=== PATIENT | male | born 1975 | race Caucasian/White ===

== ENCOUNTER 2019-08-03 16:28 | Observation (INO) | payer OTHER ==
--- NOTE | 2019-08-03 17:22 | PDOC ---
History of Present Illness - General Chief Complaint: Chest Pain Stated Complaint: CHEST PAIN Time Seen by Provider: 08/03/19 17:21 History Source: Patient Exam Limitations: No Limitations - History of Present Illness Initial Comments: Pt is a 44 yo M, with PMH of pre-DM (on metformin), who is presenting with intermittent chest pain, which has worsened since last night. Pt states the pain started last night at 10 pm when he was at rest. The pain lasts about 10 minutes, and continued to occur last night and throughout the day, even waking him from sleep. The pain is substernal and "pinching," does not radiate, and is not associated with n/v, diaphoresis. Pt denies any recent fevers/chills, headache, vision changes, syncope, palpitations, SOB, nausea/vomiting, abdominal pain, urinary symptoms, diarrhea/constipation, or leg swelling. Pt states had outpatient echo and stress test last month which "was normal". Allergies: NKDA PCP: Dr. Norton Cards: Dr. Liao Social: Pt denies any cigarette, alcohol, or drug use. Pt denies any recent travel or sick contacts. Surgical: no relevant history. Family: Mother - CVA in 50s 08/03/19 19:07 Past History - Travel Traveled outside of the country in the last 30 days: No Close contact w/someone who was outside of country & ill: No - Past Medical History Allergies/Adverse Reactions: Allergies Allergy/AdvReac Type Severity Reaction Status Date / Time ketorolac tromethamine Allergy Verified 08/03/19 16:32 [From Toradol] Home Medications: Ambulatory Orders Metformin HCl [Glucophage] 500 mg PO DAILY 08/03/19 Asthma: Yes COPD: No Diabetes: Yes Hypercholesterolemia: Yes - Psycho Social/Smoking Cessation Hx Smoking History: Never smoked Hx Alcohol Use: No Drug/Substance Use Hx: No Substance Use Type: Alcohol Cardiac Specific PMH - Complaint Specific PMHX Abdominal Aortic Aneurysm: No Angina: Yes Cardiac Arrhythmia: No Cardiac Stent: No GERD: No Myocardial Infarction: No Pacemaker: No Pulmonary Embolus: No Valvular Heart Disease: No Peripheral Vascular Disease: No Review of Systems - Review of Systems Able to Perform ROS?: Yes Is the patient limited Yakut proficient: No Constitutional: Yes: Weight Stable. No: Chills, Diaphoresis, Fever, Loss of Appetite, Malaise, Weakness HEENTM: No: Recent change in vision, Nose Congestion, Throat Pain, Throat Swelling, Difficulty Swallowing Respiratory: No: Cough, Orthopnea, Shortness of Breath Cardiac (ROS): Yes: Chest Pain. No: Edema, Irregular Heart Rate, Lightheadedness, Palpitations, Syncope, Chest Tightness ABD/GI: No: Constipated, Diarrhea, Nausea, Poor Appetite, Poor Fluid Intake, Vomiting : No: Burning, Dysuria, Frequency, Flank Pain, Pain, Urgency Musculoskeletal: No: Back Pain, Joint Pain, Muscle Pain, Muscle Weakness Integumentary: No: Rash Neurological: No: Headache, Numbness, Weakness, Unsteady Gait, Ataxia, Dizziness Psychiatric: No: Sleep Pattern Change, Change in Appetite Endocrine: No: Increased Urine, Change in Weight Hematologic/Lymphatic: No: Anemia, Blood Clots, Easy Bleeding, Easy Bruising All Other Systems: Reviewed and Negative *Physical Exam - Vital Signs Last Vital Signs Temp Pulse Resp BP Pulse Ox 98 F 82 18 145/76 98 08/03/19 16:30 08/03/19 16:30 08/03/19 16:30 08/03/19 16:30 08/03/19 16:30 - Physical Exam Comments: Vitals stable, pt afebrile. Pt in NAD, ambulatory in ED. Muscular body habitus. Pt alert and oriented x3. teacher public health generally intact, muscular strength and sensation intact. No midline spinal tenderness, step-offs, or crepitus. Head normocephalic, atraumatic. Eyes PERRLA, EOMI. Oropharynx without erythema or exudates, no LAD b/l. No nasal congestion. Hearing intact. Clear heart sounds, S1/S2, no JVD, b/l pedal edema, or heart murmur. Reproducible chest wall tenderness over mid-sternum. Clear lung sounds, no respiratory distress, wheezes, crackles, or accessory muscle use. No abdominal or CVA tenderness to palpation, no rebound, no guarding. Abdomen soft, non-distended, and with normoactive bowel sounds. Skin without jaundice or rash. 08/03/19 19:13 ED Treatment Course - LABORATORY CBC & Chemistry Diagram: 08/03/19 17:30 08/03/19 17:30 - ADDITIONAL ORDERS Additional order review: Laboratory Results 08/03/19 08/03/19 17:30 17:30 Sodium 138 Potassium 4.3 Chloride 104 Carbon Dioxide 30 Anion Gap 4 L BUN 18.6 H Creatinine 1.2 Est GFR (CKD-EPI)AfAm 83.54 Est GFR (CKD-EPI)NonAf 72.08 Random Glucose 162 H Calcium 8.6 Total Bilirubin 0.3 AST 23 ALT 40 Alkaline Phosphatase 118 H Creatine Kinase 212 Creatine Kinase Index No Result Required. CK-MB (CK-2) < 1.0 Troponin I 0.14 H Total Protein 7.7 Albumin 4.3 08/03/19 17:30 RBC 4.94 MCV 86.4 MCHC 33.4 RDW 14.4 MPV 7.4 L Neutrophils % 64.0 Lymphocytes % 26.9 Monocytes % 6.3 Eosinophils % 2.1 Basophils % 0.7 - Medications Given in the ED: ED Medications Discontinued Medications Generic Name Dose Route Start Last Admin Trade Name Freq PRN Reason Stop Dose Admin Acetaminophen 650 mg 08/03/19 18:04 08/03/19 18:30 Tylenol - PO 08/03/19 18:05 650 mg ONCE ONE Administration Aspirin 325 mg 08/03/19 18:30 08/03/19 18:45 Asa - PO 08/03/19 18:31 325 mg ONCE ONE Administration Medical Decision Making - Medical Decision Making Pt was seen at bedside, also will be seen by attending Dr. Nieves. Pt presenting with chest pain which is more severe and lasting longer than usual. Will evaluate for pericarditis vs ACS Provided 650 mg PO tylenol and 325 mg PO aspirin for improvement of pain and cardiac protection. Will continue to reassess pt and monitor for symptomatic improvement. ECG: NSR, intervals WNL (HR 76, MN 150, QRS 98, QTc 441). TWIs in III, no reciprocal change. No prior ECG for comparison. CBC and CMP generally WNL Trop 0.[address] Norton, who would like cardiology consultation before admission due to elevated troponin. Paged Dr. Liao/Mckenna Signed out to night team. 08/03/19 19:16 Discharge - Discharge Information Problems reviewed: Yes Clinical Impression/Diagnosis: Elevated troponin Chest pain Qualifiers: Chest pain type: unspecified Qualified Code(s): R07.9 - Chest pain, unspecified Condition: Stable - Admission Yes - Follow up/Referral - Patient Discharge Instructions - Post Discharge Activity
[2019-08-03 17:45] LABS: BASO % 0.7 % (0-2.0); EOS % 2.1 % (0-4.5); HEMATOCRIT 42.7 % (35.4-49); HEMOGLOBIN 14.3 GM/dL (11.7-16.9); LYMPH % 26.9 % (8-40); MCH 28.9 pg (25.7-33.7); MCHC 33.4 g/dl (32.0-35.9); MEAN CELL VOLUME 86.4 fl (80-96); MEAN PLT VOLUME 7.4 fl (7.5-11.1); MONO % 6.3 % (3.8-10.2); PLATELET COUNT 255 K/MM3 (134-434); RBC 4.94 M/mm3 (4.00-5.60); RDW 14.4 % (11.9-15.9)
[2019-08-03] MEDS ORDERED: ACETAMINOPHEN 325 MG TABLET (FP) PO ONE (18:04)
[2019-08-03 18:18] LABS: ALBUMIN 4.3 g/dl (3.4-5.0); BILIRUBIN,TOTAL 0.3 mg/dL (0.2-1); BLOOD UREA NITROGEN 18.6 mg/dL (7-18); CALCIUM 8.6 mg/dL (8.5-10.1); CREATININE 1.2 mg/dL (0.55-1.3); POTASSIUM 4.3 mmol/L (3.5-5.1); TOT PROT 7.7 g/dl (6.4-8.2)
[2019-08-03] MEDS ORDERED: ACETAMINOPHEN 325 MG TABLET (FP) ONE (18:26)
[2019-08-03] MEDS ORDERED: ASPIRIN 325 MG TABLET PO ONE (18:30)
[2019-08-03] MEDS ORDERED: ASPIRIN 325 MG ENTERIC COATED TABLET (FP) ONE (18:40)
--- NOTE | 2019-08-03 18:52 | PDOC ---
Attending Attestation - Resident Resident Name: Claudia Barbour - ED Attending Attestation I have performed the following: I have examined & evaluated the patient, The case was reviewed & discussed with the resident, I agree w/resident's findings & plan - HPI HPI: 08/03/19 18:46 44-year-old male h/o pre-DM, on metformin, presenting with intermittent left sided chest pain, worse last night. Pt states the pain started last night at 10 pm when he was at rest. The pain lasts about 10 minutes, and continued to occur last night and throughout the day, even waking him from sleep. The pain is substernal and "pinching," does not radiate, and is not associated with n/v, diaphoresis. primary doctor is Dr Blackwell has had cards workup, OP echo and stress with Dr Liao. neg stress testing/workup. no sob, dizziness/calzada, syncope, focal weakness/paresthesias. 08/04/19 10:01 - Physicial Exam PE: 08/03/19 18:50 Agree with the resident's HPI and PE as documented in the electronic medical record. NAD, well appearing, EOMI, PERRL, nl conjunctiva, anicteric; neck supple. lungs clear, RRR, abdomen soft nontender. no rebound, guarding. Back nontender. ROBERTS x4, no focal neuro deficits. No peripheral edema. normal color for ethnicity , WWP. - Medical Decision Making 08/03/19 18:50 Vital Signs Temp Pulse Resp BP Pulse Ox 98 F 82 18 145/76 98 08/03/19 16:30 08/03/19 16:30 08/03/19 16:30 08/03/19 16:30 08/03/19 16:30 DDx chest pain: ACS, coronary vasospasm, NSTEMI, arrhythmia, unstable angina, PE , dissection, PUD, esophageal spasm, GERD, gastritis, costochondritis, pneumonia , pleurisy, pericarditis/myocarditis. dehydration, electrolyte/metabolic derangements. Considered but clinically doubt based on HPI and PE: Low suspicion for pulmonary embolism or dissection. EKG normal sinus rhythm, no interval abnormalities, narrow QRS, ST and T wave segments and morphology normal. Nonspecific T wave abnormalities, unchanged from prior ASA given, treating as NSTEMI, +trop 0.14. trend trops/EKG cards Cs with Dr Liao, admitting to Dr Blackwell Plan for admit observation, possible Stress testing, to r/o ischemia/JUANITO, serial trops and EKG/tele monitoring. ASA administered, pain controlled, discussion with patient and family at bedside, made aware of impression and plan , questions answered. 08/03/19 18:52 08/04/19 10:03
--- NOTE | 2019-08-03 19:10 | PDOC ---
*Physical Exam - Vital Signs Last Vital Signs Temp Pulse Resp BP Pulse Ox 98 F 82 18 145/76 98 08/03/19 16:30 08/03/19 16:30 08/03/19 16:30 08/03/19 16:30 08/03/19 16:30 <Gil Calvillo - Last Filed: 08/03/19 23:10> - Vital Signs Last Vital Signs Temp Pulse Resp BP Pulse Ox 98.1 F 75 20 129/63 99 08/04/19 06:14 08/04/19 06:14 08/04/19 06:14 08/04/19 06:14 08/04/19 00:33 <Michelle Nieves - Last Filed: 08/04/19 10:58> ED Treatment Course - LABORATORY CBC & Chemistry Diagram: 08/03/19 17:30 08/03/19 17:30 - ADDITIONAL ORDERS Additional order review: Laboratory Results 08/03/19 08/03/19 17:30 17:30 Sodium 138 Potassium 4.3 Chloride 104 Carbon Dioxide 30 Anion Gap 4 L BUN 18.6 H Creatinine 1.2 Est GFR (CKD-EPI)AfAm 83.54 Est GFR (CKD-EPI)NonAf 72.08 Random Glucose 162 H Calcium 8.6 Total Bilirubin 0.3 AST 23 ALT 40 Alkaline Phosphatase 118 H Creatine Kinase 212 Creatine Kinase Index No Result Required. CK-MB (CK-2) < 1.0 Troponin I 0.14 H Total Protein 7.7 Albumin 4.3 08/03/19 17:30 RBC 4.94 MCV 86.4 MCHC 33.4 RDW 14.4 MPV 7.4 L Neutrophils % 64.0 Lymphocytes % 26.9 Monocytes % 6.3 Eosinophils % 2.1 Basophils % 0.7 - Medications Given in the ED: ED Medications Discontinued Medications Generic Name Dose Route Start Last Admin Trade Name Freq PRN Reason Stop Dose Admin Acetaminophen 650 mg 08/03/19 18:04 08/03/19 18:30 Tylenol - PO 08/03/19 18:05 650 mg ONCE ONE Administration Aspirin 325 mg 08/03/19 18:30 08/03/19 18:45 Asa - PO 08/03/19 18:31 325 mg ONCE ONE Administration <Gil Calvillo - Last Filed: 08/03/19 23:10> - LABORATORY CBC & Chemistry Diagram: 08/04/19 05:20 08/04/19 05:20 - ADDITIONAL ORDERS Additional order review: 08/03/19 17:30 RBC 4.94 MCV 86.4 MCHC 33.4 RDW 14.4 MPV 7.4 L Neutrophils % 64.0 Lymphocytes % 26.9 Monocytes % 6.3 Eosinophils % 2.1 Basophils % 0.7 - RADIOLOGY Radiology Studies Ordered: Category Date Time Status CHEST PA & LAT [RAD] Stat Radiology 08/03/19 17:14 Taken - Medications Given in the ED: ED Medications Discontinued Medications Generic Name Dose Route Start Last Admin Trade Name Sdq PRN Reason Stop Dose Admin Acetaminophen 650 mg 08/03/19 18:04 08/03/19 18:30 Tylenol - PO 08/03/19 18:05 650 mg ONCE ONE Administration Aspirin 325 mg 08/03/19 18:30 08/03/19 18:45 Asa - PO 08/03/19 18:31 325 mg ONCE ONE Administration <Michelle Nieves - Last Filed: 08/04/19 10:58> Medical Decision Making - Medical Decision Making MDM: HEART Score for Major Cardiac Events RESULT SUMMARY: 4 points Moderate Score (4-6 points) Risk of MACE of 12-16.6%. If troponin is positive, many experts recommend further workup and admission even with a low HEART Score. INPUTS: History > 1 = Moderately suspicious EKG > 0 = Normal Age > 1 = 45-64 Risk factors > 1 = 1-2 risk factors Initial troponin > 1 = 13 normal limit Received sign out from resident Dr. Barbour. In short, pt is a 44 y/o male presenting with intermittent substernal chest pain for the past two days. Pain is present at rest and reproducible. Recent cardiac workup outpatient. Nonspecific T-wave inversion on EKG. Initial troponin mildly elevated. Pt given Tylenol and ASA. Pt was discussed with Dr. Norton who requested cardiology consultation prior to admission decision. Awaiting call back from Dr. Andres. 03 Aug 2019 20:41 PM Second page sent for Dr. Andres through office answering service. Awaiting call back. 03 Aug 2019 21:27 PM Third page sent for Dr. Andres through office answering service. Awaiting call back. 03 Aug 2019 22:31 PM Telephone discussion with Dr. Norton. Verbally appraised of the pts HPI, ED course, and current plan of management. Will admit the pt to telemetry on observational status. Will attempt to page cardiology herself. No additional orders requested. <Gil Calvillo - Last Filed: 08/03/19 23:10> Discharge - Discharge Information Problems reviewed: Yes - Admission Yes <Gil Calvillo - Last Filed: 08/03/19 23:10> <Michelle Nieves - Last Filed: 08/04/19 10:58> - Discharge Information Clinical Impression/Diagnosis: Elevated troponin, NSTEMI (non-ST elevated myocardial infarction) Chest pain Qualifiers: Chest pain type: unspecified Qualified Code(s): R07.9 - Chest pain, unspecified Condition: Stable
--- NOTE | 2019-08-03 22:33 | CON.CARD ---
Consult Consult Specialty:: Cardiology Reason for Consultation:: chest pain - History of Present Illness History of Present Illness: Pt is a 44 yo M, with PMH of pre-DM (on metformin), who is presenting with intermittent chest pain, which has worsened since last night. Pt states the pain started last night at 10 pm when he was at rest. The pain lasts about 10 minutes, and continued to occur last night and throughout the day, even waking him from sleep. The pain is substernal and "pinching," does not radiate, and is not associated with n/v, diaphoresis. Pt denies any recent fevers/chills, headache, vision changes, syncope, palpitations, SOB, nausea/vomiting, abdominal pain, urinary symptoms, diarrhea/constipation, or leg swelling. Pt states had outpatient echo and stress test last month which "was normal". Allergies: NKDA PCP: Dr. Norton Cards: Dr. Liao PMH Diabetes mellitus Morbid obesity Hyperlipidemia Chest pain sx Exercise MIBI stress test was negative in November 2018, - History Source History Provided By: Patient, Medical Record - Past Medical History Cardio/Vascular: Yes: Hyperlipdemia Endocrine: Yes: Diabetes Mellitus - Alcohol/Substance Use Hx Alcohol Use: No - Smoking History Smoking history: Never smoked Home Medications - Allergies Allergies/Adverse Reactions: Allergies Allergy/AdvReac Type Severity Reaction Status Date / Time ketorolac tromethamine Allergy Verified 08/03/19 16:32 [From Toradol] - Home Medications Home Medications: Ambulatory Orders Metformin HCl [Glucophage] 500 mg PO DAILY 08/03/19 Review of Systems - Review of Systems Constitutional: reports: No Symptoms Eyes: reports: No Symptoms HENT: reports: No Symptoms Neck: reports: No Symptoms Cardiovascular: reports: Chest Pain (atypical in nature - sharp not related to exercise) Gastrointestinal: reports: No Symptoms Genitourinary: reports: No Symptoms Breasts: reports: No Symptoms Reported Musculoskeletal: reports: No Symptoms Integumentary: reports: No Symptoms Neurological: reports: No Symptoms Endocrine: reports: No Symptoms Hematology/Lymphatic: reports: No Symptoms Psychiatric: reports: No Symptoms Vital Signs: Vital Signs Temperature 98 F 08/03/19 16:30 Pulse Rate 79 08/03/19 19:13 Respiratory Rate 18 08/03/19 19:13 Blood Pressure 126/78 08/03/19 19:13 O2 Sat by Pulse Oximetry (%) 98 08/03/19 19:13 Constitutional: Yes: Well Nourished, No Distress, Calm Eyes: Yes: WNL, Conjunctiva Clear, EOM Intact HENT: Yes: WNL, Atraumatic, Normocephalic Neck: Yes: WNL, Supple, Trachea Midline Respiratory: Yes: WNL, Regular, CTA Bilaterally Gastrointestinal: Yes: WNL, Normal Bowel Sounds Renal/: Yes: WNL Cardiovascular: Yes: WNL, Regular Rate and Rhythm Musculoskeletal: Yes: WNL Extremities: Yes: WNL Integumentary: Yes: WNL Neurological: Yes: WNL, Alert, Oriented ...Motor Strength: WNL Psychiatric: Yes: WNL, Alert, Oriented - Other Data Labs, Other Data: CBC, BMP 08/03/19 17:30 08/03/19 17:30 Troponin, BNP 08/03/19 08/03/19 17:30 20:35 Troponin I 0.14 H 0.15 H Troponin, BNP 08/03/19 08/03/19 17:30 20:35 Troponin I 0.14 H 0.15 H Imaging - Results Chest X-ray: Image Reviewed (wnl) EKG: Image Reviewed (sr wnl) Problem List - Problems (1) Chest pain Code(s): R07.9 - CHEST PAIN, UNSPECIFIED Qualifiers: Chest pain type: unspecified Qualified Code(s): R07.9 - Chest pain, unspecified (2) Elevated troponin Code(s): R79.89 - OTHER SPECIFIED ABNORMAL FINDINGS OF BLOOD CHEMISTRY (3) Corneal abrasion Code(s): S05.00XA - INJ CONJUNCTIVA AND CORNEAL ABRASION W/O FB, UNSP EYE, INIT (4) Injury, hand Code(s): S69.90XA - UNSP INJURY OF UNSP WRIST, HAND AND FINGER(S), INIT ENCNTR (5) Uveitis Code(s): H20.9 - UNSPECIFIED IRIDOCYCLITIS Assessment/Plan Atypical CP Positive TNIs (low level) Normal EKG Diabetes mellitus Morbid obesity Hyperlipidemia Chest pain sx Exercise MIBI stress test was negative in November 2018, Plan r/o [place] ASA BB ECHO stress test DVT PLX keep LDL below 70 mg/dl
[2019-08-03] MEDS ORDERED: ACETAMINOPHEN 325 MG TABLET (FP) PO PRN (23:00)
[2019-08-03 23:55] VITALS: BMI 35.6
[2019-08-04] MEDS: PANTOPRAZOLE 40 MG TABLET (FP) PO SCH ×3 (00:18→21:47)
[2019-08-04] MEDS: methylPREDNISolone NA SUCC 40 MG/1 ML VIAL IVPUSH SCH ×3 (00:19→09:43)
[2019-08-04] MEDS: metFORMIN HCL 500 MG TABLET (FP) PO SCH (06:13)
[2019-08-04 07:09] LABS: BASO % 0.2 % (0-2.0); EOS % 0.1 % (0-4.5); HEMATOCRIT 42.2 % (35.4-49); HEMOGLOBIN 13.8 GM/dL (11.7-16.9); LYMPH % 11.3 % (8-40); MCHC 32.7 g/dl (32.0-35.9); MEAN CELL VOLUME 85.8 fl (80-96); MONO % 1.4 % (3.8-10.2); PLATELET COUNT 232 K/MM3 (134-434); RBC 4.92 M/mm3 (4.00-5.60); RDW 14.1 % (11.9-15.9); WHITE BLOOD COUNT 6.9 K/mm3 (4.0-10.0)
[2019-08-04 07:39] LABS: ALBUMIN 4.3 g/dl (3.4-5.0); ALK PHOS 118 U/L (45-117); ANION GAP 6 MMOL/L (8-16); BILIRUBIN,TOTAL 0.4 mg/dL (0.2-1); BLOOD UREA NITROGEN 18.2 mg/dL (7-18); CALCIUM 8.9 mg/dL (8.5-10.1); CHLORIDE 103 mmol/L (98-107); CHOLESTEROL 194 mg/dL (50-200); CO2 26 mmol/L (21-32); CREATININE 1.1 mg/dL (0.55-1.3); GLUCOSE,RANDOM 178 mg/dL (74-106); HDL CHOLESTEROL 58 mg/dL (40-60); LDL CHOLESTEROL (ONLY SJRH) 130 mg/dL (5-100); MAGNESIUM 2.3 mg/dL (1.8-2.4); POTASSIUM 4.7 mmol/L (3.5-5.1); SGOT/AST 18 U/L (15-37); SGPT/ALT 36 U/L (13-61); SODIUM 135 mmol/L (136-145); TOT PROT 7.7 g/dl (6.4-8.2); TRIGLYCERIDES 75 mg/dL (0-150)
--- NOTE | 2019-08-04 09:29 | PN ---
Progress Note, Physician History of Present Illness: Pt is a 44 yo M, with PMH of pre-DM (on metformin), who is presenting with intermittent chest pain, which has worsened since last night. Pt states the pain started last night at 10 pm when he was at rest. The pain lasts about 10 minutes, and continued to occur last night and throughout the day, even waking him from sleep. The pain is substernal and "pinching," does not radiate, and is not associated with n/v, diaphoresis. Pt denies any recent fevers/chills, headache, vision changes, syncope, palpitations, SOB, nausea/vomiting, abdominal pain, urinary symptoms, diarrhea/constipation, or leg swelling. Pt states had outpatient echo and stress test last month which "was normal". Allergies: NKDA PCP: Dr. Norton Cards: Dr. Liao PMH Diabetes mellitus Morbid obesity Hyperlipidemia Chest pain sx Exercise MIBI stress test was negative in November 2018, - Current Medication List Current Medications: Active Medications Acetaminophen (Tylenol -) 650 mg PO Q6H PRN PRN Reason: PAIN LEVEL 1-5 Last Admin: 08/04/19 03:57 Dose: 650 mg Aspirin (Ecotrin -) 81 mg PO DAILY [facility] Atorvastatin Calcium (Lipitor -) 40 mg PO HS [facility] Metformin HCl (Glucophage -) 500 mg PO ACBK [facility] Last Admin: 08/04/19 06:13 Dose: 500 mg Methylprednisolone Sodium Succinate (Solu-Medrol -) 40 mg IVPUSH Q8H-IV [facility] Last Admin: 08/04/19 02:08 Dose: Not Given Pantoprazole Sodium (Protonix -) 40 mg PO BID [facility] Last Admin: 08/04/19 00:18 Dose: 40 mg - Objective Vital Signs: Vital Signs Temperature 98.1 F 08/04/19 06:14 Pulse Rate 75 08/04/19 06:14 Respiratory Rate 20 08/04/19 06:14 Blood Pressure 129/63 08/04/19 06:14 O2 Sat by Pulse Oximetry (%) 99 08/04/19 00:33 Eyes: Yes: WNL, Conjunctiva Clear, EOM Intact HENT: Yes: WNL, Atraumatic, Normocephalic Neck: Yes: WNL, Supple, Trachea Midline Cardiovascular: Yes: WNL, Regular Rate and Rhythm Respiratory: Yes: WNL, Regular, CTA Bilaterally Gastrointestinal: Yes: WNL, Normal Bowel Sounds Genitourinary: Yes: WNL Musculoskeletal: Yes: WNL Extremities: Yes: WNL Edema: No Integumentary: Yes: WNL Neurological: Yes: WNL, Alert, Oriented ...Motor Strength: WNL Psychiatric: Yes: WNL Labs: CBC, BMP 08/04/19 05:20 08/04/19 05:20 Problem List - Problems (1) Chest pain Code(s): R07.9 - CHEST PAIN, UNSPECIFIED Qualifiers: Chest pain type: unspecified Qualified Code(s): R07.9 - Chest pain, unspecified (2) Elevated troponin Code(s): R79.89 - OTHER SPECIFIED ABNORMAL FINDINGS OF BLOOD CHEMISTRY (3) Corneal abrasion Code(s): S05.00XA - INJ CONJUNCTIVA AND CORNEAL ABRASION W/O FB, UNSP EYE, INIT (4) Injury, hand Code(s): S69.90XA - UNSP INJURY OF UNSP WRIST, HAND AND FINGER(S), INIT ENCNTR (5) Uveitis Code(s): H20.9 - UNSPECIFIED IRIDOCYCLITIS Assessment/Plan Atypical CP Positive TNIs (low level) Normal EKG Diabetes mellitus Morbid obesity Hyperlipidemia Chest pain sx Exercise MIBI stress test was negative in November 2018, Plan r/o [place] ASA BB ECHO stress test DVT PLX keep LDL below 70 mg/dl Agree with Atorvastatin
[2019-08-04] MEDS: ASPIRIN COATED 81 MG TABLET.EC PO SCH (09:41)
--- NOTE | 2019-08-04 11:29 | EKG ---
Test Reason : Blood Pressure : / mmHG Vent. Rate : 076 BPM Atrial Rate : 076 BPM P-R Int : 150 ms QRS Dur : 098 ms QT Int : 392 ms P-R-T Axes : 045 004 026 degrees QTc Int : 441 ms NORMAL SINUS RHYTHM NORMAL ECG WHEN COMPARED WITH ECG OF 27-FEB-2010 22:33, NO SIGNIFICANT CHANGE WAS FOUND Confirmed by CALEB MORE MD ([id number]) on 08/04/2019 11:29:08 AM Referred By: Confirmed By:CALEB MORE MD
--- NOTE | 2019-08-04 11:29 | EKG ---
Test Reason : Blood Pressure : / mmHG Vent. Rate : 082 BPM Atrial Rate : 082 BPM P-R Int : 158 ms QRS Dur : 098 ms QT Int : 374 ms P-R-T Axes : 039 -17 007 degrees QTc Int : 436 ms NORMAL SINUS RHYTHM NORMAL ECG WHEN COMPARED WITH ECG OF 04-AUG-2019 02:54, NO SIGNIFICANT CHANGE WAS FOUND Confirmed by CALEB MORE MD ([id number]) on 08/04/2019 11:28:45 AM Referred By: Alena MALLORY Confirmed By:CALEB MORE MD
--- NOTE | 2019-08-04 11:49 | HP ---
Admitting History and Physical - Admission History of Present Illness: 44-year-old male h/o pre-DM, on metformin, presenting with intermittent left sided chest pain for over 1 yr , worse last night. Pt states the pain started last night at 10 pm when he was at rest. The pain lasts about 10 minutes, and continued to occur last night and throughout the day, even waking him from sleep. The pain is substernal and "pinching," does not radiate, and is not associated with n/v, diaphoresis. Patient was evaluated by cardiology rcently with "full work up" which was negative per patient -- He has had cardio workup, OP echo and stress with Dr Liao. neg stress testing/workup. no sob, dizziness/calzada, syncope, focal weakness/paresthesias. History Source: Patient, Medical Record Limitations to Obtaining History: No Limitations - Past Medical History Cardiovascular: Yes: Hyperlipdemia Endocrine: Yes: Diabetes Mellitus, Other (pre diabetic on metformin) - Smoking History Smoking history: Never smoked Have you smoked in the past 12 months: No - Alcohol/Substance Use Hx Alcohol Use: No History of Substance Use: reports: None - Social History Usual Living Arrangement: Yes: With Spouse ADL: Independent History of Recent Travel: No Home Medications - Allergies Allergies/Adverse Reactions: Allergies Allergy/AdvReac Type Severity Reaction Status Date / Time ketorolac tromethamine Allergy Verified 08/03/19 16:32 [From Toradol] - Home Medications Home Medications: Ambulatory Orders Metformin HCl [Glucophage] 500 mg PO DAILY 08/03/19 Review of Systems - Review of Systems Constitutional: denies: Chills, Diaphoresis, Fever Eyes: reports: No Symptoms HENT: reports: No Symptoms Neck: reports: No Symptoms Cardiovascular: reports: Chest Pain. denies: Edema, Palpitations, Shortness of Breath Respiratory: reports: No Symptoms, Snoring Gastrointestinal: reports: No Symptoms Genitourinary: reports: No Symptoms Breasts: reports: No Symptoms Reported Musculoskeletal: reports: No Symptoms Integumentary: reports: No Symptoms Neurological: reports: No Symptoms Endocrine: reports: No Symptoms Hematology/Lymphatic: reports: No Symptoms Psychiatric: reports: No Symptoms Physical Examination Vital Signs: Vital Signs Temperature 98.1 F 08/04/19 06:14 Pulse Rate 75 08/04/19 06:14 Respiratory Rate 20 08/04/19 06:14 Blood Pressure 129/63 08/04/19 06:14 O2 Sat by Pulse Oximetry (%) 99 08/04/19 00:33 Constitutional: Yes: Well Nourished, No Distress, Obese Eyes: Yes: WNL, Conjunctiva Clear HENT: Yes: WNL, Atraumatic, Normocephalic Neck: Yes: Supple, Trachea Midline Cardiovascular: Yes: Regular Rate and Rhythm Respiratory: Yes: CTA Bilaterally Gastrointestinal: Yes: Normal Bowel Sounds, Soft, Abdomen, Obese ...Rectal Exam: Yes: Deferred Renal/: Yes: WNL Breast(s): Yes: WNL Musculoskeletal: Yes: WNL Extremities: Yes: WNL Edema: No Peripheral Pulses WNL: Yes Integumentary: Yes: WNL Neurological: Yes: Alert, Oriented ...Motor Strength: WNL Psychiatric: Yes: WNL Labs: CBC, BMP 08/04/19 05:20 08/04/19 05:20 Problem List - Problems (1) Chest pain, atypical Code(s): R07.89 - OTHER CHEST PAIN (2) Costochondritis Code(s): M94.0 - CHONDROCOSTAL JUNCTION SYNDROME [TIETZE] (3) Hyperlipemia Code(s): E78.5 - HYPERLIPIDEMIA, UNSPECIFIED (4) Obese Code(s): E66.9 - OBESITY, UNSPECIFIED (5) Prediabetes Code(s): R73.03 - PREDIABETES (6) History of prediabetes Code(s): Z87.898 - PERSONAL HISTORY OF OTHER SPECIFIED CONDITIONS (7) Elevated troponin Code(s): R79.89 - OTHER SPECIFIED ABNORMAL FINDINGS OF BLOOD CHEMISTRY Assessment/Plan # Chest pain reported no EKG changes TNI suggestive of ischemia - will trend clinically - c/w chostochondritis ( CP reproducible ) order serial TNI / EKG cardiology consult ER unable to reach cardiology at time of admission - op patient records not available # obese / pre diabetic weight loss ADA diet #HLD statins continue metformin
[2019-08-04] MEDS ORDERED: PT OWN MED DRAWER 7, Y5N ONE (13:34)
[2019-08-04] MEDS: INDOMETHACIN 50 MG CAPSULE PO SCH ×2 (14:04→21:47)
[2019-08-04] MEDS: ATORVASTATIN CA 40 MG TABLET (FP) PO SCH (21:47)
[2019-08-05] MEDS: metFORMIN HCL 500 MG TABLET (FP) PO SCH (06:48)
[2019-08-05] MEDS: INDOMETHACIN 50 MG CAPSULE PO SCH ×3 (06:48→21:23)
--- NOTE | 2019-08-05 09:14 | PN ---
Progress Note, Physician History of Present Illness: Pt is a 44 yo M, with PMH of pre-DM (on metformin), who is presenting with intermittent chest pain, which has worsened since last night. Pt states the pain started last night at 10 pm when he was at rest. The pain lasts about 10 minutes, and continued to occur last night and throughout the day, even waking him from sleep. The pain is substernal and "pinching," does not radiate, and is not associated with n/v, diaphoresis. Pt denies any recent fevers/chills, headache, vision changes, syncope, palpitations, SOB, nausea/vomiting, abdominal pain, urinary symptoms, diarrhea/constipation, or leg swelling. Pt states had outpatient echo and stress test last month which "was normal". Allergies: NKDA PCP: Dr. Norton Cards: Dr. Liao PMH Diabetes mellitus Morbid obesity Hyperlipidemia Chest pain sx Exercise MIBI stress test was negative in November 2018, - Current Medication List Current Medications: Active Medications Acetaminophen (Tylenol -) 650 mg PO Q6H PRN PRN Reason: PAIN LEVEL 1-5 Last Admin: 08/04/19 03:57 Dose: 650 mg Aspirin (Ecotrin -) 81 mg PO DAILY [facility] Last Admin: 08/04/19 09:41 Dose: 81 mg Atorvastatin Calcium (Lipitor -) 40 mg PO HS [facility] Last Admin: 08/04/19 21:47 Dose: 40 mg Indomethacin (Indocin -) 50 mg PO TID [facility] Last Admin: 08/05/19 06:48 Dose: 50 mg Metformin HCl (Glucophage -) 500 mg PO ACBK [facility] Last Admin: 08/05/19 06:48 Dose: 500 mg Pantoprazole Sodium (Protonix -) 40 mg PO BID [facility] Last Admin: 08/04/19 21:47 Dose: 40 mg - Objective Vital Signs: Vital Signs Temperature 97.8 F 08/05/19 06:00 Pulse Rate 66 08/05/19 06:00 Respiratory Rate 20 08/05/19 06:00 Blood Pressure 110/57 L 08/05/19 06:00 O2 Sat by Pulse Oximetry (%) 96 08/04/19 21:00 Eyes: Yes: WNL, Conjunctiva Clear, EOM Intact HENT: Yes: WNL, Atraumatic, Normocephalic Neck: Yes: WNL, Supple, Trachea Midline Cardiovascular: Yes: WNL, Regular Rate and Rhythm Respiratory: Yes: WNL, Regular, CTA Bilaterally Gastrointestinal: Yes: WNL, Normal Bowel Sounds Genitourinary: Yes: WNL Musculoskeletal: Yes: WNL Extremities: Yes: WNL Edema: No Integumentary: Yes: WNL Neurological: Yes: WNL, Alert, Oriented ...Motor Strength: WNL Psychiatric: Yes: WNL Labs: CBC, BMP 08/04/19 05:20 08/04/19 05:20 Problem List - Problems (1) Chest pain Code(s): R07.9 - CHEST PAIN, UNSPECIFIED Qualifiers: Chest pain type: unspecified Qualified Code(s): R07.9 - Chest pain, unspecified (2) Elevated troponin Code(s): R79.89 - OTHER SPECIFIED ABNORMAL FINDINGS OF BLOOD CHEMISTRY (3) Corneal abrasion Code(s): S05.00XA - INJ CONJUNCTIVA AND CORNEAL ABRASION W/O FB, UNSP EYE, INIT (4) Injury, hand Code(s): S69.90XA - UNSP INJURY OF UNSP WRIST, HAND AND FINGER(S), INIT ENCNTR (5) Uveitis Code(s): H20.9 - UNSPECIFIED IRIDOCYCLITIS Assessment/Plan Atypical CP Positive TNIs (low level -trending down) Normal EKG Diabetes mellitus Morbid obesity Hyperlipidemia Chest pain sx Exercise MIBI stress test was negative in November 2018, Plan; r/o SD ASA BB ECHO stress test DVT PLX keep LDL below 70 mg/dl Agree with Atorvastatin
[2019-08-05] MEDS: ASPIRIN COATED 81 MG TABLET.EC PO SCH (09:57)
[2019-08-05] MEDS: PANTOPRAZOLE 40 MG TABLET (FP) PO SCH ×2 (09:57→21:23)
--- NOTE | 2019-08-05 10:01 | PN ---
Progress Note (short form) - Note Progress Note: patient seen and examined in room chest pain symptom resolved no pain / pinching or pressure reported tolerating Indomethacin Vital Signs Period Temp Pulse Resp BP Sys/Zamora Pulse Ox Last 24 Hr 97.8 F-99.2 F 66-101 20-20 110-144/57-87 96 Awake A O X3 neck supple heart S1/S2 reg lungs clear bilat abd soft obese ext FROM CBC, BMP 08/04/19 05:20 08/04/19 05:20 Active Medications Acetaminophen (Tylenol -) 650 mg PO Q6H PRN PRN Reason: PAIN LEVEL 1-5 Last Admin: 08/04/19 03:57 Dose: 650 mg Aspirin (Ecotrin -) 81 mg PO DAILY [facility] Last Admin: 08/05/19 09:57 Dose: 81 mg Atorvastatin Calcium (Lipitor -) 40 mg PO HS [facility] Last Admin: 08/04/19 21:47 Dose: 40 mg Indomethacin (Indocin -) 50 mg PO TID [facility] Last Admin: 08/05/19 06:48 Dose: 50 mg Metformin HCl (Glucophage -) 500 mg PO ACBK [facility] Last Admin: 08/05/19 06:48 Dose: 500 mg Pantoprazole Sodium (Protonix -) 40 mg PO BID [facility] Last Admin: 08/05/19 09:57 Dose: 40 mg patient seen and examined in room ambulating without Sx Assessment/Plan # Chest pain reported no EKG changes TNI suggestive of ischemia - trending down clinically - c/w chostochondritis ( CP reproducible ) responding well to Indomethacin patient asymptomatic this am cardiology consult recommending stress echo in am - will delay discharge per recommendation ER unable to reach cardiology at time of admission - op patient records not available possible d/c in am # obese / pre diabetic weight loss ADA diet #HLD statins continue metformin Problem List - Problems (1) Chest pain, atypical Code(s): R07.89 - OTHER CHEST PAIN (2) Costochondritis Code(s): M94.0 - CHONDROCOSTAL JUNCTION SYNDROME [TIETZE] (3) Hyperlipemia Code(s): E78.5 - HYPERLIPIDEMIA, UNSPECIFIED (4) Obese Code(s): E66.9 - OBESITY, UNSPECIFIED (5) Prediabetes Code(s): R73.03 - PREDIABETES (6) History of prediabetes Code(s): Z87.898 - PERSONAL HISTORY OF OTHER SPECIFIED CONDITIONS (7) Elevated troponin Code(s): R79.89 - OTHER SPECIFIED ABNORMAL FINDINGS OF BLOOD CHEMISTRY
[2019-08-05] MEDS: ATORVASTATIN CA 40 MG TABLET (FP) PO SCH (21:23)
[2019-08-06] MEDS: INDOMETHACIN 50 MG CAPSULE PO SCH ×2 (06:38→14:33)
[2019-08-06] MEDS: metFORMIN HCL 500 MG TABLET (FP) PO SCH (06:38)
--- NOTE | 2019-08-06 08:08 | PN ---
Progress Note, Physician History of Present Illness: Pt is a 44 yo M, with PMH of pre-DM (on metformin), who is presenting with intermittent chest pain, which has worsened since last night. Pt states the pain started last night at 10 pm when he was at rest. The pain lasts about 10 minutes, and continued to occur last night and throughout the day, even waking him from sleep. The pain is substernal and "pinching," does not radiate, and is not associated with n/v, diaphoresis. Pt denies any recent fevers/chills, headache, vision changes, syncope, palpitations, SOB, nausea/vomiting, abdominal pain, urinary symptoms, diarrhea/constipation, or leg swelling. Pt states had outpatient echo and stress test last month which "was normal". Allergies: NKDA PCP: Dr. Norton Cards: Dr. Liao PMH Diabetes mellitus Morbid obesity Hyperlipidemia Chest pain sx Exercise MIBI stress test was negative in November 2018, - Current Medication List Current Medications: Active Medications Acetaminophen (Tylenol -) 650 mg PO Q6H PRN PRN Reason: PAIN LEVEL 1-5 Last Admin: 08/04/19 03:57 Dose: 650 mg Aspirin (Ecotrin -) 81 mg PO DAILY [facility] Last Admin: 08/05/19 09:57 Dose: 81 mg Atorvastatin Calcium (Lipitor -) 40 mg PO HS [facility] Last Admin: 08/05/19 21:23 Dose: 40 mg Indomethacin (Indocin -) 50 mg PO TID [facility] Last Admin: 08/06/19 06:38 Dose: Not Given Metformin HCl (Glucophage -) 500 mg PO ACBK [facility] Last Admin: 08/06/19 06:38 Dose: Not Given Pantoprazole Sodium (Protonix -) 40 mg PO BID [facility] Last Admin: 08/05/19 21:23 Dose: 40 mg - Objective Vital Signs: Vital Signs Temperature 97.6 F 08/06/19 06:00 Pulse Rate 62 08/06/19 06:00 Respiratory Rate 20 08/06/19 06:00 Blood Pressure 127/77 08/06/19 06:00 O2 Sat by Pulse Oximetry (%) 96 08/05/19 21:00 Eyes: Yes: WNL, Conjunctiva Clear, EOM Intact HENT: Yes: WNL, Atraumatic, Normocephalic Neck: Yes: WNL, Supple, Trachea Midline Cardiovascular: Yes: WNL, Regular Rate and Rhythm Respiratory: Yes: WNL, Regular, CTA Bilaterally Gastrointestinal: Yes: WNL, Normal Bowel Sounds Genitourinary: Yes: WNL Musculoskeletal: Yes: WNL Extremities: Yes: WNL Edema: No Integumentary: Yes: WNL Neurological: Yes: WNL, Alert, Oriented ...Motor Strength: WNL Psychiatric: Yes: WNL Labs: CBC, BMP 08/04/19 05:20 08/04/19 05:20 Problem List - Problems (1) Chest pain Code(s): R07.9 - CHEST PAIN, UNSPECIFIED Qualifiers: Chest pain type: unspecified Qualified Code(s): R07.9 - Chest pain, unspecified (2) Elevated troponin Code(s): R79.89 - OTHER SPECIFIED ABNORMAL FINDINGS OF BLOOD CHEMISTRY (3) Corneal abrasion Code(s): S05.00XA - INJ CONJUNCTIVA AND CORNEAL ABRASION W/O FB, UNSP EYE, INIT (4) Injury, hand Code(s): S69.90XA - UNSP INJURY OF UNSP WRIST, HAND AND FINGER(S), INIT ENCNTR (5) Uveitis Code(s): H20.9 - UNSPECIFIED IRIDOCYCLITIS Assessment/Plan Atypical CP Positive TNIs (low level -trending down) Normal EKG Diabetes mellitus Morbid obesity Hyperlipidemia Chest pain sx Exercise MIBI stress test was negative in November 2018, Plan; ECHO stress test pending ASA BB DVT PLX keep LDL below 70 mg/dl Agree with Atorvastatin
--- NOTE | 2019-08-06 08:31 | PN ---
Progress Note (short form) - Note Progress Note: patient seen and examined in room chest pain symptom resolved no pain / pinching or pressure reported tolerating Indomethacin Vital Signs Period Temp Pulse Resp BP Sys/Zamora Pulse Ox Last 24 Hr 97.2 F-98.5 F 62-71 15-20 116-135/66-88 96-96 Awake A O X3 neck supple heart S1/S2 reg lungs clear bilat abd soft obese ext FROM CBC, BMP 08/04/19 05:20 08/04/19 05:20 Active Medications Acetaminophen (Tylenol -) 650 mg PO Q6H PRN PRN Reason: PAIN LEVEL 1-5 Last Admin: 08/04/19 03:57 Dose: 650 mg Aspirin (Ecotrin -) 81 mg PO DAILY [facility] Last Admin: 08/05/19 09:57 Dose: 81 mg Atorvastatin Calcium (Lipitor -) 40 mg PO HS [facility] Last Admin: 08/05/19 21:23 Dose: 40 mg Indomethacin (Indocin -) 50 mg PO TID [facility] Last Admin: 08/06/19 06:38 Dose: Not Given Metformin HCl (Glucophage -) 500 mg PO ACBK [facility] Last Admin: 08/06/19 06:38 Dose: Not Given Pantoprazole Sodium (Protonix -) 40 mg PO BID [facility] Last Admin: 08/05/19 21:23 Dose: 40 mg Assessment/Plan # Chest pain reported no EKG changes TNI suggestive of ischemia - trending down clinically - c/w chostochondritis ( CP reproducible ) responding well to Indomethacin patient asymptomatic this am cardiology consult recommending stress echo in am - will delay discharge per recommendation ER unable to reach cardiology at time of admission - op patient records not available possible d/c in am # obese / pre diabetic weight loss ADA diet #HLD statins continue metformin Problem List - Problems (1) Chest pain, atypical Code(s): R07.89 - OTHER CHEST PAIN (2) Costochondritis Code(s): M94.0 - CHONDROCOSTAL JUNCTION SYNDROME [TIETZE] (3) Hyperlipemia Code(s): E78.5 - HYPERLIPIDEMIA, UNSPECIFIED (4) Obese Code(s): E66.9 - OBESITY, UNSPECIFIED (5) Prediabetes Code(s): R73.03 - PREDIABETES (6) History of prediabetes Code(s): Z87.898 - PERSONAL HISTORY OF OTHER SPECIFIED CONDITIONS (7) Elevated troponin Code(s): R79.89 - OTHER SPECIFIED ABNORMAL FINDINGS OF BLOOD CHEMISTRY
[2019-08-06] MEDS ORDERED: PT OWN MED DRAWER 7, Y5N ONE ×2 (10:13→14:32)
[2019-08-06] MEDS: ASPIRIN COATED 81 MG TABLET.EC PO SCH (10:15)
[2019-08-06] MEDS: PANTOPRAZOLE 40 MG TABLET (FP) PO SCH (10:15)
--- NOTE | 2019-08-06 11:35 | DS ---
Physical Examination Vital Signs: Vital Signs Temperature 97.6 F 08/06/19 06:00 Pulse Rate 62 08/06/19 06:00 Respiratory Rate 20 08/06/19 06:00 Blood Pressure 127/77 08/06/19 06:00 O2 Sat by Pulse Oximetry (%) 96 08/05/19 21:00 Findings/Remarks: 44-year-old male h/o pre-DM, on metformin, presenting with intermittent left sided chest pain for over 1 yr , worse last night. Pt states the pain started last night at 10 pm when he was at rest. The pain lasts about 10 minutes, and continued to occur last night and throughout the day, even waking him from sleep. The pain is substernal and "pinching," does not radiate, and is not associated with n/v, diaphoresis. Patient was evaluated by cardiology rcently with "full work up" which was negative per patient -- He has had cardio workup, OP echo and stress with Dr Liao. neg stress testing/workup. no sob, dizziness/calzada, syncope, focal weakness/paresthes Patient admitted to telemetry, serial ekg and TNI followed, no evidence of ischemia or cardiac event. Physical exam was significant for reproducible chest pain so patient was started on INDOCIN - symptoms subsided within 24 hours - reports no chest pain / pinching / pressure or chest discomfort. Patient scheduled for stress echo this am -- if negative will d/c home Stress test done - well tolerated no complications Constitutional: Yes: Well Nourished, No Distress, Calm Eyes: Yes: Conjunctiva Clear, EOM Intact HENT: Yes: Atraumatic, Normocephalic Neck: Yes: Supple, Trachea Midline Cardiovascular: Yes: Regular Rate and Rhythm Respiratory: Yes: Regular, CTA Bilaterally Gastrointestinal: Yes: Normal Bowel Sounds, Soft, Abdomen, Obese ...Rectal Exam: Yes: WNL, Deferred Renal/: Yes: WNL Breast(s): Yes: WNL Musculoskeletal: Yes: WNL Extremities: Yes: WNL Edema: No Peripheral Pulses WNL: Yes Integumentary: Yes: Laceration Neurological: Yes: Alert, Oriented ...Motor Strength: WNL Psychiatric: Yes: WNL, Alert, Oriented Labs: CBC, BMP 08/04/19 05:20 08/04/19 05:20 Discharge Summary Problems reviewed: Yes Reason For Visit: ATYPICAL CHEST PAIN, Current Active Problems Chest pain, atypical (Acute) Costochondritis (Acute) Elevated troponin (Acute) History of prediabetes (Acute) Hyperlipemia (Acute) Obese (Acute) Condition: Improved - Instructions Referrals: Delphine Norton MD [Primary Care Provider] - - Home Medications Comprehensive Discharge Medication List: Ambulatory Orders Metformin HCl [Glucophage] 500 mg PO DAILY 08/03/19
[2019-08-06 14:45] VITALS: BP 144/98; PULSE 68; TEMP 97.4
--- NOTE | 2019-08-06 14:49 | ECHO ---
Name: MICHAELA AMEZQUITA Exam:Exerise Stress Echocardiogram Study Date: 08/06/2019 01:45 PM Age: 44 yrs I WMSI = 1.00 % Normal = 100 III WMSI = 1.00 % Normal = 100 Segments Size 1-2 small X - Cannot 1 - Normal 2 - 3 - Akinetic 4 - Dyskinetic3-5 moderate Interpret Hypokinetic 6-14 large 5 - Aneurysmal 15-16 diffuse Procedure Details: Exercise Stress Echocardiogram with 2D imaging. Stress Comments Resting blood pressure was within normal limits. Normal resting electrocardiogram. Normal sinus rhythm. Normal ST segments. Normal T waves. A treadmill exercise test according to Patel protocol was performed. Maximum Heart Rate achieved was 85-90% of maximum age-predicted heart rate. There was no new ST segment depression. Total Stress Time was 9-10 minutes. Normal blood pressure response to exercise. Left Ventricle The left ventricle is normal in size. There is normal left ventricular wall thickness. The left ventricle is normal in structure and function. The left ventricular ejection fraction is normal. Exercise Echocardiogram Negative exercise stress echocardiogram, adequate by heart rate criteria, without symptoms, diagnosti c EKG changes or echocardiographic evidence of ischemia. The left ventricular ejection fraction is normal. Interpretation Summary Negative exercise stress echocardiogram, adequate by heart rate criteria, without symptoms, diagnosti c EKG changes or echocardiographic evidence of ischemia 1. Normal augmentation of all myocardial segments 2. Patient remained asymptomatic 3. Patient exercised 9 min into stage 3 Patel protocol and achieved 87% of MPTHR Reading Physician: Geovanny Andres MD 08/06/2019 02:48 PM
--- NOTE | 2019-08-07 11:23 | EKG ---
Test Reason : Blood Pressure : / mmHG Vent. Rate : 068 BPM Atrial Rate : 068 BPM P-R Int : 152 ms QRS Dur : 100 ms QT Int : 404 ms P-R-T Axes : 024 -04 -03 degrees QTc Int : 429 ms NORMAL SINUS RHYTHM NORMAL ECG WHEN COMPARED WITH ECG OF 03-AUG-2019 16:34, NO SIGNIFICANT CHANGE WAS FOUND Confirmed by MD De Souza Edward ([id number]) on 08/07/2019 11:23:24 AM Referred By: Confirmed By:Yury De Souza MD
== END 2019-08-06 16:10 | disposition home or self-care (01) ==
LOC: JER 16:28 → UNDOADMOB 22:19 → JERBED 22:19 → OBSVTOIN 22:50 → INTOOBSV 22:50 → JERBED 08-04 00:07 → J4W 08-04 00:07 → JERBED 08-06 10:34 → J4W 08-06 10:34 → JERBED 08-06 10:36 → J4W 08-06 11:32
PROVIDERS: ADMIT Family Medicine; ATTEND Family Medicine
PROC: 3E033GC Introduction of Other Therapeutic Substance into Peripheral Vein, Percutaneous Approach (ICD-10-PCS; principal; 2019-08-06)
DX: R77.8 Other specified abnormalities of plasma proteins (principal); R07.89 Other chest pain; R73.03 Prediabetes; J45.909 Unspecified asthma, uncomplicated; E78.5 Hyperlipidemia, unspecified; M94.0 Chondrocostal junction syndrome [Tietze]; E66.01 Morbid (severe) obesity due to excess calories; Z68.35 Body mass index [BMI] 35.0-35.9, adult; Z88.6 Allergy status to analgesic agent; Z79.84 Long term (current) use of oral hypoglycemic drugs
CPT/HCPCS: 36415; 71046-TC-FY; 80053; 80061; 82550; 82553; 82962; 83721; 83735; 84484; 85025; 93005; 93010; 93351; 96365; 99284-25; G0378

== ENCOUNTER 2021-09-18 16:46 | Emergency (ER) | payer OTHER ==
[2021-09-18 16:50] VITALS: BMI 34.2
[2021-09-18] MEDS ORDERED: ACETAMINOPHEN 1000 MG/100 ML VIAL IVPB ONE (17:02)
[2021-09-18] MEDS ORDERED: SODIUM CHLORIDE 1,000 ML IV STA (17:02)
[2021-09-18] MEDS ORDERED: ACETAMINOPHEN INJECTION 100 ML IVPB ONE (17:21)
[2021-09-18 17:50] LABS: ALBUMIN 4.2 g/dl (3.4-5.0); BILIRUBIN,TOTAL 0.8 mg/dl (0.2-1); CALCIUM 8.9 mg/dl (8.5-10); CREATININE 0.9 mg/dl (0.55-1.3); TOT PROT 7.5 g/dl (6.4-8.2)
[2021-09-18 18:12] LABS: BASO % 0.4 % (0-2.0); EOS % 0.8 % (0-4.5); HEMATOCRIT 42.1 % (35.4-49); HEMOGLOBIN 13.8 GM/dL (11.7-16.9); LYMPH % 14.5 % (8-40); MCH 27.2 pg (25.7-33.7); MCHC 32.9 g/dl (32.0-35.9); MEAN CELL VOLUME 82.6 fl (80-96); MONO % 8.8 % (3.8-10.2); NEUT % 75.5 % (42.8-82.8); PLATELET COUNT 268 10^3/uL (134-434); RBC 5.09 M/mm3 (4.00-5.60); RDW 15.2 % (11.9-15.9); WHITE BLOOD COUNT 9.2 K/mm3 (4.0-10.0)
[2021-09-18] MEDS ORDERED: AMOX TR/POT CLAV 875MG/125MG TABLETS (FP) PO ONE (19:37)
[2021-09-18 19:40] VITALS: BP 120/83; PULSE 76; TEMP 98.2
== END 2021-09-18 19:46 | disposition home or self-care (01) ==
LOC: FER 16:46
PROC: 3E0333Z Introduction of Anti-inflammatory into Peripheral Vein, Percutaneous Approach (ICD-10-PCS; principal; 2021-09-18)
PROC: 3E0337Z Introduction of Electrolytic and Water Balance Substance into Peripheral Vein, Percutaneous Approach (ICD-10-PCS; 2021-09-18)
DX: K57.92 Diverticulitis of intestine, part unspecified, without perforation or abscess without bleeding (principal)
CPT/HCPCS: 36415; 74177-TC; 80053; 81003; 85025; 87086; 99285-25; J0131

== ENCOUNTER 2022-06-13 19:16 | Observation (INO) | payer OTHER ==
[2022-06-13] MEDS ORDERED: CLOPIDOGREL BISULFATE 300 MG TABLET PO ONE (19:45)
[2022-06-13] MEDS ORDERED: CLOPIDOGREL BISULFATE 300 MG TABLET ONE (19:54)
[2022-06-13 20:15] LABS: HEMATOCRIT 37.8 % (35.4-49); MCH 29.6 pg (25.7-33.7); MCHC 34.5 g/dl (32.0-35.9); PLATELET COUNT 185.1 10^3/uL (134-434); RDW 14.6 % (11.9-15.9); WHITE BLOOD COUNT 5.7 10^3/uL (4.0-10.8)
[2022-06-13 20:28] LABS: INR 1.11 (0.83-1.09); PROTHROMBIN TIME (PATIENT) 12.8 SEC (9.7-13.0)
[2022-06-13 20:34] LABS: PLATELET ESTIMATE ADEQUATE
[2022-06-13 21:12] LABS: ALBUMIN 3.9 g/dl (3.4-5.0); BILIRUBIN,TOTAL 0.3 mg/dl (0.2-1)
[2022-06-13 23:16] VITALS: BMI 34.5
[2022-06-13] MEDS ORDERED: DOCUSATE SODIUM 100 MG CAPSULE (FP) PO PRN (23:20)
[2022-06-13] MEDS: ACETAMINOPHEN 1000 MG/100 ML BAG IVPB PRN (23:40)
[2022-06-14] MEDS: INSULIN SLIDING SCALE (NOVOLOG) 1 VIAL SQ SCH ×6 (01:26→21:58)
[2022-06-14] MEDS ORDERED: ALBUTEROL SO4 HFA INHALER IH PRN (02:24)
[2022-06-14] MEDS ORDERED: GABAPENTIN 300 MG CAPSULE PO ONE ×2 (02:25→02:32)
[2022-06-14] MEDS ORDERED: oxyCODONE HCL 5 MG TABLET PO PRN (02:25)
[2022-06-14] MEDS ORDERED: ZOLPIDEM TARTRATE 5 MG TABLET PO PRN (02:25)
[2022-06-14] MEDS: ACETAMINOPHEN 1000 MG/100 ML BAG IVPB PRN ×2 (06:41→14:45)
[2022-06-14 08:16] LABS: CALCIUM 8.4 mg/dl (8.5-10); CREATININE 1.1 mg/dl (0.55-1.3); MAGNESIUM 1.9 mg/dL (1.8-2.4)
[2022-06-14] MEDS: PANTOPRAZOLE 20 MG TABLET PO SCH ×2 (09:19→21:57)
[2022-06-14] MEDS: TAMSULOSIN HCL 0.4 MG CAP PO SCH (09:19)
[2022-06-14] MEDS: ENOXAPARIN NA (PORCINE) 40 MG/0.4 ML DISP.SYRIN SQ SCH (09:19)
[2022-06-14 09:31] LABS: BASO % 0.6 % (0-2.0); EOS % 1.6 % (0-4.5); HEMATOCRIT 38.1 % (35.4-49); HEMOGLOBIN 12.4 GM/dL (11.7-16.9); LYMPH % 38.4 % (8-40); MCH 27.6 pg (25.7-33.7); MCHC 32.6 g/dl (32.0-35.9); MEAN CELL VOLUME 84.7 fl (80-96); MONO % 9.8 % (3.8-10.2); NEUT % 49.6 % (42.8-82.8); PLATELET COUNT 202 10^3/uL (134-434); RDW 14.9 % (11.9-15.9); WHITE BLOOD COUNT 5.2 K/mm3 (4.0-10.0)
[2022-06-14] MEDS: ATORVASTATIN CA 10 MG TABLET (FP) PO SCH (21:57)
[2022-06-14] MEDS: MELATONIN 5 MG TABLETS PO SCH (21:57)
[2022-06-14] MEDS ORDERED: MELATONIN 5 MG TABLETS PO SCH (22:00)
[2022-06-15] MEDS: INSULIN SLIDING SCALE (NOVOLOG) 1 VIAL SQ SCH ×4 (07:03→21:17)
[2022-06-15] MEDS ORDERED: INSULIN (LEVEMIR) 100 UNITS/ML UNITS SQ SCH (10:00)
[2022-06-15] MEDS ORDERED: REGADENOSON 0.4 MG/5 ML PRE-FILLED SYRINGE IVPUSH ONE ×2 (10:06→10:15)
[2022-06-15] MEDS: PANTOPRAZOLE 20 MG TABLET PO SCH ×2 (18:25→21:15)
[2022-06-15] MEDS: TAMSULOSIN HCL 0.4 MG CAP PO SCH (18:25)
[2022-06-15] MEDS: ENOXAPARIN NA (PORCINE) 40 MG/0.4 ML DISP.SYRIN SQ SCH (18:25)
[2022-06-15] MEDS: ATORVASTATIN CA 10 MG TABLET (FP) PO SCH (21:14)
[2022-06-15] MEDS: MELATONIN 5 MG TABLETS PO SCH (21:15)
[2022-06-15] MEDS: SACUBITRIL/VALSARTAN 24 MG-26 MG TABLET PO SCH (23:59)
[2022-06-16] MEDS: INSULIN SLIDING SCALE (NOVOLOG) 1 VIAL SQ SCH ×4 (06:47→21:36)
[2022-06-16] MEDS ORDERED: INSULIN (LEVEMIR) 100 UNITS/ML UNITS SQ SCH ×2 (07:21→10:00)
[2022-06-16] MEDS: ASPIRIN COATED 81 MG TABLET.EC PO SCH (09:32)
[2022-06-16] MEDS: CARVEDILOL 3.125 MG TABLET (FP) PO SCH ×2 (09:32→21:37)
[2022-06-16] MEDS: TAMSULOSIN HCL 0.4 MG CAP PO SCH (09:32)
[2022-06-16] MEDS: ENOXAPARIN NA (PORCINE) 40 MG/0.4 ML DISP.SYRIN SQ SCH (09:32)
[2022-06-16] MEDS: SACUBITRIL/VALSARTAN 24 MG-26 MG TABLET PO SCH ×2 (09:39→21:37)
[2022-06-16] MEDS: PANTOPRAZOLE 20 MG TABLET PO SCH ×2 (09:40→21:37)
[2022-06-16 12:17] LABS: N-TERMINAL BNP 26.6 pg/ml (5-125)
[2022-06-16] MEDS: ACETAMINOPHEN 500 MG TABLET (FP) PO PRN (20:46)
[2022-06-16] MEDS: MELATONIN 5 MG TABLETS PO SCH (21:37)
[2022-06-16] MEDS: ATORVASTATIN CA 10 MG TABLET (FP) PO SCH (21:37)
[2022-06-17] MEDS: INSULIN (LEVEMIR) 100 UNITS/ML UNITS SQ SCH (06:35)
[2022-06-17] MEDS: INSULIN SLIDING SCALE (NOVOLOG) 1 VIAL SQ SCH ×4 (06:36→21:25)
[2022-06-17] MEDS: SACUBITRIL/VALSARTAN 24 MG-26 MG TABLET PO SCH ×2 (09:15→21:26)
[2022-06-17] MEDS: TAMSULOSIN HCL 0.4 MG CAP PO SCH (09:15)
[2022-06-17] MEDS: CARVEDILOL 3.125 MG TABLET (FP) PO SCH ×2 (09:15→21:26)
[2022-06-17] MEDS: PANTOPRAZOLE 20 MG TABLET PO SCH ×2 (09:15→21:26)
[2022-06-17] MEDS: ENOXAPARIN NA (PORCINE) 40 MG/0.4 ML DISP.SYRIN SQ SCH (09:16)
[2022-06-17] MEDS: ASPIRIN COATED 81 MG TABLET.EC PO SCH (09:16)
[2022-06-17] MEDS ORDERED: INSULIN (LEVEMIR) 100 UNITS/ML UNITS SQ SCH (19:00)
[2022-06-17] MEDS: MELATONIN 5 MG TABLETS PO SCH (21:25)
[2022-06-17] MEDS: ATORVASTATIN CA 10 MG TABLET (FP) PO SCH (21:26)
[2022-06-18] MEDS: INSULIN SLIDING SCALE (NOVOLOG) 1 VIAL SQ SCH (06:41)
[2022-06-18] MEDS: INSULIN (LEVEMIR) 100 UNITS/ML UNITS SQ SCH (06:42)
[2022-06-18] MEDS ORDERED: INSULIN (LEVEMIR) 100 UNITS/ML UNITS SQ SCH (07:32)
[2022-06-18] MEDS: TAMSULOSIN HCL 0.4 MG CAP PO SCH (07:45)
[2022-06-18] MEDS: ACETAMINOPHEN 500 MG TABLET (FP) PO PRN (07:45)
[2022-06-18] MEDS: SACUBITRIL/VALSARTAN 24 MG-26 MG TABLET PO SCH (09:41)
[2022-06-18] MEDS: CARVEDILOL 3.125 MG TABLET (FP) PO SCH (09:41)
[2022-06-18] MEDS: ENOXAPARIN NA (PORCINE) 40 MG/0.4 ML DISP.SYRIN SQ SCH (09:43)
[2022-06-18] MEDS: PANTOPRAZOLE 20 MG TABLET PO SCH (09:43)
[2022-06-18] MEDS: ASPIRIN COATED 81 MG TABLET.EC PO SCH (09:43)
[2022-06-18 09:45] VITALS: TEMP 98
[2022-06-18 14:40] VITALS: BP 124/86; PULSE 77; RESP 17
== END 2022-06-18 15:00 | disposition left against medical advice (07) ==
LOC: FER 19:16 → FM/S 21:34
PROVIDERS: ADMIT Internal Medicine; ATTEND Internal Medicine
PROC: 3E033NZ Introduction of Analgesics, Hypnotics, Sedatives into Peripheral Vein, Percutaneous Approach (ICD-10-PCS; principal; 2022-06-13)
PROC: 3E013VG Introduction of Insulin into Subcutaneous Tissue, Percutaneous Approach (ICD-10-PCS; 2022-06-13)
PROC: 3E033GC Introduction of Other Therapeutic Substance into Peripheral Vein, Percutaneous Approach (ICD-10-PCS; 2022-06-13)
DX: R07.9 Chest pain, unspecified (principal); I10 Essential (primary) hypertension; R07.89 Other chest pain; E66.8 Other obesity; Z68.34 Body mass index [BMI] 34.0-34.9, adult; E78.5 Hyperlipidemia, unspecified; E11.9 Type 2 diabetes mellitus without complications; Z88.8 Allergy status to other drugs, medicaments and biological substances
CPT/HCPCS: 36415; 71046-TC-FY; 78452-TC; 80048; 80053; 80061; 82962; 83690; 83735; 83880; 84443; 84484; 85025; 85027; 85610; 85730; 93005; 93017; 93306-TC; 96372; 96374; 96375; 99285-25; A9502; C9803-CS; G0378; J2785; U0003; U0005